=== PATIENT | female | born 1970 | race African-American/Black ===

== ENCOUNTER → 2018-05-18 | Outpatient (CLI) | payer OTHER ==
--- NOTE | 2018-05-18 14:56 | RAD ---
Bilateral breast ultrasound, 05/18/2018: History: Abnormal mammogram A targeted ultrasound exam of both breasts was performed in the areas where nodules were identified on the recent mammograms. On the right, at the 9:00 location approximately 2 cm from the nipple there is a 1.2 cm simple cyst. This corresponds to the nodule seen on the mammograms. On the left at the 3:00 location approximately 1 cm from the nipple there is a 3.7 cm simple cyst. Just posterior to this cyst there is a second smaller 1.8 cm cyst. These cysts correspond in location to the nodule seen on the mammograms. IMPRESSION: Bilateral simple cysts. Routine yearly mammographic follow-up is suggested. BI-RADS 3-benign findings
== END | disposition home or self-care (01) ==
LOC: US 13:53
PROVIDERS: ATTEND Family Medicine
DX: N60.02 Solitary cyst of left breast (principal); N60.01 Solitary cyst of right breast
CPT/HCPCS: 76641

== ENCOUNTER → 2018-05-18 | Outpatient (CLI) | payer OTHER ==
--- NOTE | 2018-05-18 09:42 | RAD ---
DATE: 05/18/2018 EXAM: MAMMO FIONA SCREENING BILATERAL HISTORY: Routine screening COMPARISON: 08/27/2011 This study was interpreted with the benefit of Computerized Aided Detection (CAD). Breast Density: HETERO The breast parenchyma is heterogenously dense, which could reduce sensitivity of mammography. Breast parenchyma level C. FINDINGS: 2-D and 3-D tomosynthesis imaging was performed in CC and MLO projections. On the right there is a 10 mm smooth superficial periareolar nodule just lateral to the midline as best seen on CC tomosynthesis image #31. There is a larger 3.5 cm smooth retroareolar mass on the left centered just lateral to the midline. There is an additional 17 mm smooth nodule located just posterior to this larger nodule in the left breast. No spiculated mass or architectural distortion is seen. No suspicious microcalcifications are evident. IMPRESSION: Bilateral smooth breast nodules are probably cysts. Sonographic evaluation is suggested for confirmation. BI-RADS CATEGORY: 0 INCOMPLETE: NEEDS ADDITIONAL IMAGING EVALUATION AND/OR PRIOR MAMMOGRAMS FOR COMPARISON. RECOMMENDED FOLLOW-UP: ADD ADDITIONAL IMAGING PQRS compliance statement: Patient information was entered into a reminder system with a target due date for the next mammogram. Mammography is a sensitive method for finding small breast cancers, but it does not detect them all and is not a substitute for careful clinical examination. A negative mammogram does not negate a clinically suspicious finding and should not result in delay in biopsying a clinically suspicious abnormality. "Our facility is accredited by the [employer] Mammography [employer]."
== END | disposition home or self-care (01) ==
LOC: MAMMO 08:05
PROVIDERS: ATTEND Family Medicine
DX: Z12.31 Encounter for screening mammogram for malignant neoplasm of breast (principal); N63.10 Unspecified lump in the right breast, unspecified quadrant; N63.20 Unspecified lump in the left breast, unspecified quadrant
CPT/HCPCS: 77063; 77067

== ENCOUNTER → 2020-05-31 | Outpatient (CLI) | payer OTHER ==
--- NOTE | 2020-05-31 16:09 | KCIC ---
Bilateral digital screening mammograms with 3-D tomosynthesis: Reason for examination: Routine screening. Comparison is made to previous studies dated 05/18/2018 and 08/06/2011. Bilateral mammograms in CC and oblique projections were obtained with 2-D imaging and 3-D tomosynthes is imaging on a Siemens Inspiration unit and reviewed on the workstation. Interpretation was made wit h the benefit of CAD. The skin and nipples show no abnormalities. No abnormal axillary lymph nodes are seen. The breast par enchyma is extremely dense. (Breast density: Category D.) There continue to be circumscribed lesions in the anterior lateral left breast corresponding to cysts seen on previous ultrasound examinations. There are no suspicious calcifications evident. Impression: No evidence of malignancy. Recommend routine screening. Your patient's mammogram demonstrates that she has dense breast tissue (breast density category C or D), which could hide abnormalities, and if she has other risk factors for breast cancer that have bee n identified, she might benefit from supplemental screening tests that may be suggested by you as her ordering physician. Dense breast tissue, in and of itself, is a relatively common condition. Therefo re, this information is not provided to cause undue concern, but rather to raise your awareness and t o promote discussion with your patient regarding the presence of other risk factors, in addition to d ense breast tissue. Your patient's mammography results will be sent to her. BI-RAD Category 2: Benign. "Our facility is accredited by the [employer] Mammography Program." This patient's information has been entered into a reminder system for the patient to be notified wit h the results of her examination and a target date for the next mammogram. Electronically signed by: Angie Tillman MD (05/31/2020 4:06 PM) [id number]
== END ==
LOC: KCIC MAMMO 08:47
PROVIDERS: ATTEND Family Medicine
DX: Z12.31 Encounter for screening mammogram for malignant neoplasm of breast (principal); N64.89 Other specified disorders of breast
CPT/HCPCS: 77063; 77067